=== PATIENT | male | born 1955 | race Caucasian/White ===

== ENCOUNTER 2016-05-30 23:05 | Inpatient (IN) | payer OTHER ==
--- NOTE | ~2016-05-30 | DS ---
Unit #: [id number] #: [id number] Patient: MARCO A JOEL [id number] [address] [place], [place] [address] [id number] MR#: [id number] NAME: MARCO A JOEL. ROOM: 239 Age: 61 Sex: M Admission Date: 05/31/2016 : 1955 Discharge Date: 06/01/2016 Attending Physician: Bhavik Womack M.D. Primary Care Physician: Junior Wong M.D. DISCHARGE SUMMARY DISCHARGE DIAGNOSES 1. Community-acquired pneumonia presumed to be gram-negative rods. 2. Resolved leukocytosis. PROCEDURES None. CONSULTANTS None. DIAGNOSTIC STUDIES IMAGING STUDIES: Consist of a chest x-ray that was done on 05/30/2016 with impression, suspected patchy left lower lobe infiltrate suggestive of early pneumonia. Repeat chest x-ray on 05/31/2016, impression, stable left lower lobe infiltrate. Blood cultures are no growth in both sets for 24 hours. LABORATORY RESULTS: BMP; glucose 116, BUN 11, creatinine 0.9, sodium 134, potassium 3.9, chloride 106, CO2 of 19, total protein 7.8, albumin 3.8, total bilirubin 0.9, lactic acid 1.1. CBC with WBC , hemoglobin 13.8, hematocrit 41.4, MCV 29.1, MCH 30.6, MCHC 30.3, RDW 12.9, platelets 321, and MPV 7.86. Flu A and B were negative. HOSPITAL COURSE The patient is a pleasant 61-year-old male with no significant past medical history, who was presented to the emergency department due to symptoms of dyspnea, half sleeping at night, the patient has had upper respiratory symptoms over the past week. Prior to hospitalization, he was seen by his primary care physician, who prescribed Solu-Medrol. The patient continued to do bad and came back at the end of the week and was prescribed azithromycin. The patient had taken azithromycin on Tuesday, Tuesday, and Tuesday. He tells me that on Tuesday night, due to symptoms of dyspnea, half sleeping that woke him up, he presented into the emergency department where under evaluation he was found to have left lower lobe infiltrate and was admitted for community-acquired pneumonia presumed to be gram-negative vaishali, failed outpatient therapy of azithromycin, the patient was being treated with Levaquin IV. The patient did have baseline leukocytosis of 13,000 and at the time of discharge, his white count had reduced down to 11,000. The patient has been afebrile he has not required oxygen use, 97% on room air. At this time, the patient is ready to be discharged home in stable condition. The patient is to follow up with his primary care physician within 1 to 2 weeks with a repeat chest x-ray. Unit #: [id number] #: [id number] Patient: MARCO A JOEL DISCHARGE ACTIVITIES Resume activities as was prior to hospitalization with ambulating every day as tolerated. DISCHARGE DIET Resume heart healthy diet as was prior to hospitalization. DISCHARGE MEDICATIONS Include; Levaquin 750 mg for the next 5 days, Combivent Respimat 1 puff inhaled four times daily, Claritin 10 mg orally daily and he gets over the counter, he can continue with Tessalon Perles 100 mg three times daily as needed for cough, twice daily. Dictated by... Stanislav Fu PA-C for Ricky Domínguez/erasmo TD: 06/02/2016 03:01 JOB #: [id number] DISCHARGE SUMMARY Page 1 of 1 X X DISCHARGE SUMMARY
--- NOTE | ~2016-05-30 | CR63 ---
[facility] A Service of [facility] & [facility] RADIOLOGY TEXT RESULTS PATIENT: MARCO A JOEL LOCATION: [facility] 239 : 59 UNIT #: [id number] AGE: [address]: Bhavik Womack MD SEX: M ORDER DR: [id number] [facility] [address] [place], [place] [address] [id number] I MR#: [id number] Acc #: [id number] NAME: MARCO A JOEL. : 1955 SEX: M STUDY DATE/TIME: 05/31/2016 14:14 UNIT: [facility] ROOM: [facility] STUDY DESCRIPTION: CR Chest 2 View Attending Physician: Isac Salinas M.D. Ordering Physician: Isac Salinas M.D. Primary Care Physician: Junior Wong M.D. MEDICAL IMAGING REPORT This report is preliminary unless electronic signature is present EXAM PA and lateral chest 05/31/2016 HISTORY 61-year-old male with shortness of breath for 1 week. COMPARISON STUDIES 05/30/2016 FINDINGS Stable left lower lobe infiltrate. Heart size stable. Degenerative change thoracic spine. IMPRESSION Stable left lower lobe infiltrate. Dictated by... Hugo Domníguez M.D. THIS IS AN ELECTRONICALLY VERIFIED REPORT Hugo Domínguez M.D. at 06/01/2016 10:00 AM ROSENDA/nico TD: 05/31/2016 18:18 JOB #: [id number] MEDICAL IMAGING REPORT Page 1 of 1 COPY
--- NOTE | ~2016-05-30 | CR63 ---
[facility] A Service of [facility] & [facility] RADIOLOGY TEXT RESULTS PATIENT: MARCO A JOEL LOCATION: [facility] 334- : 59 UNIT #: [id number] AGE: [address]: Isac Salinas MD SEX: M ORDER DR: [id number] [facility] [address] [place], [place] [address] [id number] I MR#: [id number] Acc #: [id number] NAME: MARCO A JOEL. : 1955 SEX: M STUDY DATE/TIME: 05/30/2016 21:57 UNIT: [address] ROOM: [facility] STUDY DESCRIPTION: CR Chest 2 View Attending Physician: Isac Salinas M.D. Ordering Physician: Shelly Mcallister M.D. Primary Care Physician: Junior Wong M.D. MEDICAL IMAGING REPORT This report is preliminary unless electronic signature is present EXAM Two-view chest. HISTORY Cough and congestion for 11 days. COMPARISON 01/21/2013. FINDINGS 2 views of the chest demonstrates subtle patchy left lower lobe infiltrate in the left posterior costophrenic sulcus. No effusions. Heart, mediastinum, great vessels and bony thorax unremarkable. IMPRESSION Suspected patchy left lower lobe infiltrate suggestive of early pneumonia. Dictated by... Shraddha Domínguez M.D. THIS IS AN ELECTRONICALLY VERIFIED REPORT Shraddha Domínguez M.D. at 05/31/2016 10:06 AM RANDI/herson TD: 05/31/2016 09:55 JOB #: [id number] MEDICAL IMAGING REPORT Page 1 of 1 COPY
--- NOTE | ~2016-05-30 | EKG ---
PATIENT: MARCO A JOEL UNIT #: [id number] Ventricular Rate: 81 BPM Atrial Rate: 81 BPM P-R Interval: 168 ms QRS Duration: 84 ms Q-T Interval: 362 ms QTC Calculation(Bezet): 420 ms P Crawford: 36 degrees Calculated R Crawford: 0 degrees Calculated T Crawford: 33 degrees Diagnosis Line: Normal sinus rhythm Diagnosis Line: Anterior infarct (cited on or before 30-MAY-2016) Diagnosis Line: Abnormal ECG Diagnosis Line: When compared with ECG of 30-MAY-2016 23:49, Diagnosis Line: (unconfirmed) Diagnosis Line: No significant change was found Diagnosis Line: Confirmed by DANYELLE LUZ MD ([id number]) on 05/31/2016 Diagnosis Line: 11:02:21 PM INTERPRETING MD: NATTY CHAND
--- NOTE | ~2016-05-30 | HP ---
Unit #: [id number] #: [id number] Patient: MARCO A JOEL [id number] [address] [place], [place] [address] [id number] MR#: [id number] NAME: MARCO A JOEL. ROOM: 239 Age: 61 Sex: M Admission Date: 05/31/2016 : 1955 Attending Physician: Isac Salinas M.D. Primary Care Physician: Junior Wong M.D. HISTORY AND PHYSICAL CHIEF COMPLAINT Shortness of breath. HISTORY OF PRESENT ILLNESS Patient is a 61-year-old with no significant past medical history, who presents to the emergency department due to symptoms of shortness of breath. Late yesterday evening, while sleeping, patient tells me that he has had one week symptoms of chills with flu-like symptoms which was off and on, on . He was seen by his primary care physician on Tuesday and was diagnosed with upper respiratory infection and was given a Dose Justino of penicillin. Then, on Tuesday, due to persistent symptoms of upper respiratory infection, he presented to his primary care physician again on Tuesday where he was given a pack of Z-Justino and has started on that and has been compliant. He tells me that he has had subjective fever at home but the last time that he had subjective fever was two days prior to admission and he was actually starting to feel better. However, yesterday evening, he had an episode of shortness of breath while sleeping, woke up in the middle of the night. Therefore, he presented to the emergency department for further evaluation. In the emergency department, his temperature was 99.6, pulse 96, respiratory rate 16, blood pressure 194/85 and was 96% on room air. Chest x-ray does reveal patient has suspected patchy left lower lobe infiltrates suggestive of early pneumonia. The patient was admitted and started on IV fluids as well as IV Levaquin. At the time of my evaluation, the patient tells me that he is feeling much better with nebulized treatments. He still has some upper respiratory congestion. He has a nonproductive cough and has been afebrile for the past 24 hours. PAST MEDICAL HISTORY None. PAST SURGICAL HISTORY 1. Rotator cuff, right shoulder. 2. Lipoma x2. 3. Left-sided rib fracture after a fall in the past. HOME MEDICATIONS None except for the prednisone dose pack and the azithromycin prior to this as well as multivitamin. ALLERGIES No known drug allergies. SOCIAL HISTORY Patient has never smoked. Denies any IV drug usage. States that he lives Unit #: [id number] #: [id number] Patient: MARCO A JOEL at home with his and is a social drinker. FAMILY HISTORY Positive for heart disease in his father and cancer. PHYSICAL EXAMINATION VITAL SIGNS: At the time of my evaluation, temperature 98.1, pulse 87, respiratory rate 16, blood pressure 102/68. Mid 90s on 2 liters of oxygen. GENERAL: Patient was lying in bed at the time of this assessment in no apparent distress, utilizing oxygen 2 liters nasal cannula. HEENT: Atraumatic, normocephalic. Pupils equal, round, reactive to light and accommodation. Extraocular movements are intact. NECK: Supple. No JVD. LUNGS: Clear to auscultation bilaterally. No rhonchi, no wheezing. HEART: Regular rate and rhythm. ABDOMEN: Soft, positive bowel sounds. EXTREMITIES: No cyanosis, no clubbing, no pitting edema. NEUROLOGIC: Alert, awake, oriented. No gross focal motor deficits. DIAGNOSTIC STUDIES LABORATORY: BMP glucose 116, BUN 11, creatinine 0.9, sodium 134, potassium 3.9, chloride 106, CO2 is 19, calcium 7.7, total protein 7.8, albumin 3.8, total bilirubin 0.9, AST 37, ALT 85, alkaline phosphatase 93. BNP 9. Lactic acid 1.1. CBC with WBC of 11.1, RBC 4.15, hemoglobin 12.6, hematocrit 37.3, MCV is 89.8, MCH is 30.3, MCHC 33.7, RDW 12.9, platelets 280, MPV 7.2. Influenza A and B are negative. ASSESSMENT AND PLAN 1. Community-acquired pneumonia in the left lower lobe presumed to be Gram negative ashley. We are treated with IV Levaquin. The patient had failed outpatient therapy. 2. Hypokalemia. Replacing and will recheck in the morning. Dictated by Stanislav Fu PA-C for Ricky Domínguez/akosua TD: 05/31/2016 18:27 JOB #: [id number] HISTORY AND PHYSICAL Page 1 of 1 X X HISTORY AND PHYSICAL
[2016-05-30 23:50] LABS: INFLUENZA A NEG (NEG)
[2016-05-30 23:51] LABS: INFLUENZA B NEG (NEG)
[2016-05-30 23:53] LABS: BASOPHIL# 0.1 X10e3 (0-0.3); BASOPHIL% 0.6 % (0-2.5); EOSINOPHIL% 0.3 % (0.0-7.0); HEMATOCRIT 43.3 % (38.0-50.0); HEMOGLOBIN 14.6 gm/dL (13.0-16.0); LYMPHOCYTE# 1.9 X10e3 (1.0-3.5); LYMPHOCYTE% 13.8 % (17.0-45.0); MEAN CELL VOLUME 90.6 FL (83-96); MEAN CORPUSCULAR HEMOGLOBIN 30.6 PG (28-34); MEAN CORPUSCULAR HGB CONC 33.8 g/dL (30-36); MEAN PLATELET VOLUME 7.5 FL (6.5-11.5); MONOCYTE# 0.9 X10e3 (0-1.0); MONOCYTE% 6.5 % (3.0-12.0); NEUTROPHIL# 10.6 X10e3 (1.5-7.1); NEUTROPHIL% 78.8 % (40-75); PLATELET COUNT 320 X10e3 (140-420); RED BLOOD COUNT 4.78 X10e (3.90-5.60); RED CELL DISTRIBUTION WIDTH 12.9 % (11.0-15.5); WHITE BLOOD COUNT 13.5 X10e3 (4.0-10.5)
[2016-05-30 23:55] LABS: DIFF IND NO
[2016-05-31 00:06] LABS: POC - CKMB <1.0 ng/mL (0.0-7.9); POC - TROPONIN <0.05 ng/mL (<=0.05)
[2016-05-31 00:08] LABS: PARTIAL THROMBOPLASTIN TIME 30.3 SECONDS (23.5-31.3)
[2016-05-31 00:19] LABS: ALBUMIN SERUM 3.8 g/dL (3.5-5.0); BILIRUBIN, DIRECT 0.1 mg/dL (0.0-0.2); BILIRUBIN,INDIRECT 0.8 mg/dL (0.0-0.9); BILIRUBIN,TOTAL 0.9 mg/dL (0.2-2.0); BUN/CREATININE RATIO 11.81; CALCIUM SERUM 8.4 mg/dL (8.4-10.2); CREATININE SERUM 1.1 mg/dL (0.6-1.4); GLOM FILT RATE Estimated 73.1 mL/min (>60); POTASSIUM 3.7 mmol/L (3.5-5.1); PROTEIN TOTAL SERUM 7.8 g/dL (6.0-8.3)
[2016-05-31] MEDS ORDERED: AZITHROMYCIN250 MG PO (00:56)
[2016-05-31] MEDS ORDERED: BENZONATATE PO (00:58)
[2016-05-31] MEDS ORDERED: PROMETHAZINE D118 ML PO (00:58)
[2016-05-31 04:34] LABS: BASOPHIL% 0.2 % (0-2.5); EOSINOPHIL% 0.1 % (0.0-7.0); HEMATOCRIT 37.3 % (38.0-50.0); LYMPHOCYTE# 1.6 X10e3 (1.0-3.5); LYMPHOCYTE% 14.7 % (17.0-45.0); MEAN CELL VOLUME 89.8 FL (83-96); MEAN CORPUSCULAR HEMOGLOBIN 30.3 PG (28-34); MEAN CORPUSCULAR HGB CONC 33.7 g/dL (30-36); MEAN PLATELET VOLUME 7.2 FL (6.5-11.5); MONOCYTE# 0.8 X10e3 (0-1.0); MONOCYTE% 7.3 % (3.0-12.0); NEUTROPHIL# 8.7 X10e3 (1.5-7.1); NEUTROPHIL% 77.7 % (40-75); PLATELET COUNT 280 X10e3 (140-420); RED BLOOD COUNT 4.15 X10e (3.90-5.60); RED CELL DISTRIBUTION WIDTH 12.9 % (11.0-15.5); WHITE BLOOD COUNT 11.1 X10e3 (4.0-10.5)
[2016-05-31 04:36] LABS: DIFF IND NO; HEMOGLOBIN 12.6 gm/dL (13.0-16.0)
[2016-05-31 05:03] LABS: BUN/CREATININE RATIO 12.22; CALCIUM SERUM 7.7 mg/dL (8.4-10.2); CREATININE SERUM 0.9 mg/dL (0.6-1.4); GLOM FILT RATE Estimated 93.2 mL/min (>60); POTASSIUM 3.9 mmol/L (3.5-5.1)
[2016-06-01 08:47] LABS: HEMATOCRIT 41.4 % (38.0-50.0); HEMOGLOBIN 13.8 gm/dL (13.0-16.0); MEAN CELL VOLUME 92.1 FL (83-96); MEAN CORPUSCULAR HEMOGLOBIN 30.6 PG (28-34); MEAN CORPUSCULAR HGB CONC 33.3 g/dL (30-36); MEAN PLATELET VOLUME 7.6 FL (6.5-11.5); RED BLOOD COUNT 4.5 X10e (3.90-5.60); RED CELL DISTRIBUTION WIDTH 12.9 % (11.0-15.5); WHITE BLOOD COUNT 10.7 X10e3 (4.0-10.5)
[2016-06-01 09:26] LABS: BUN/CREATININE RATIO 11.81; CALCIUM SERUM 8.6 mg/dL (8.4-10.2); CREATININE SERUM 1.1 mg/dL (0.6-1.4); GLOM FILT RATE Estimated 73.1 mL/min (>60); MAGNESIUM 2.1 mg/dL (1.6-3.0); POTASSIUM 4.4 mmol/L (3.5-5.1)
[2016-06-01] MEDS ORDERED: CLARITIN PO (09:34)
[2016-06-01] MEDS ORDERED: COMBIVENT RESPIM4 GM (09:35)
[2016-06-01] MEDS ORDERED: LEVAQUIN750 M1 PO (09:36)
== END 2016-06-01 10:37 | disposition home or self-care (01) | DRG 179 ==
LOC: CED 23:05 → CEDOF 05-31 01:10 → C3A PCU 05-31 07:37 → C2A 05-31 11:55
PROVIDERS: Internal Medicine; Student in an Organized Health Care Education/Training Program
DX: J15.6 Pneumonia due to other Gram-negative bacteria (principal); E87.6 Hypokalemia
CPT/HCPCS: 36415; 71020; 80048; 80076; 82553; 83605; 83735; 83880; 84484; 85025; 85027; 85610; 85730; 87040; 87804; 93005; 94640; 94760; 96360; 99285; J1650; J1956; J3370